=== PATIENT | male | born 1975 | race Two or more races ===

== ENCOUNTER 2024-10-10 20:35 | Emergency (ER) | payer OTHER ==
[2024-10-10 20:45] VITALS: BP 121/76; PULSE 104; RESP 16; BMI 29.2
[2024-10-10] MEDS ORDERED: KETOROLAC TROMETHAMINE 30 MG/1 ML VIAL ONE (21:12)
[2024-10-10] MEDS ORDERED: ALBUTEROL SO4 2.5/IPRATROPIUM 0.5 INH SOL 3 ML VIAL.NEB. NEB ONE (21:19)
[2024-10-10] MEDS: ALBUTEROL SO4 2.5/IPRATROPIUM 0.5 INH SOL 3 ML VIAL.NEB. NEB ONE (21:27)
[2024-10-10] MEDS: KETOROLAC TROMETHAMINE 30 MG/1 ML VIAL IM ONE (21:27)
[2024-10-10] MEDS ORDERED: ACETAMINOPHEN 500 MG TABLET (FP) ONE (22:34)
[2024-10-10] MEDS: ACETAMINOPHEN 500 MG TABLET (FP) PO ONE (22:36)
[2024-10-10 23:14] VITALS: TEMP 98.5
== END 2024-10-10 23:14 | disposition home or self-care (01) ==
LOC: JERFT 20:35
PROC: 3E0133Z Introduction of Anti-inflammatory into Subcutaneous Tissue, Percutaneous Approach (ICD-10-PCS; principal; 2024-10-10)
PROC: 3E0F7GC Introduction of Other Therapeutic Substance into Respiratory Tract, Via Natural or Artificial Opening (ICD-10-PCS; 2024-10-10)
DX: R50.9 Fever, unspecified (principal); R05.9 Cough, unspecified
CPT/HCPCS: 71046-TC-FY; 99284-25